=== PATIENT | male | born 1965 | race Asian ===

== ENCOUNTER 2019-01-06 12:39 | Emergency (ER) | payer SELFPAY ==
--- NOTE | 2019-01-06 14:08 | ED ---
Bite Injury/Animal - HPI Summary HPI Summary: Patient is a 53 y/o M presenting to the ED for a chief complaint of animal bite. Patient is present with his . On 01/02/19, patient went to visit his son because the son stated he had a bat in his apartment for several days. The patient and his killed the bat and disposed of the bat in a dumpster. The bat is now . While attempting to kill the bat, the patient was bitten on the fourth finger of the left hand. Patient admits pain in the fourth finger. He denies fever or headache. He denies any aggravating or alleviating factors. Patient denies taking any medications, or any PMHx or PSHx. Allergies noted. Medications reviewed. - History of Current Complaint Chief Complaint: EDAnimalBite Stated Complaint: BAT BITE PER PT Time Seen by Provider: 01/06/19 13:50 Hx Obtained From: Patient Onset of Injury: Happened days ago, Still Present Type of Bite: Wild Animal - Bat Hx of Bite: Provoked by: - Attempt to kill bat Has Animal Been Immunized?: Unknown Severity Initially: Mild Severity Currently: Mild Pain Intensity: 3 Pain Scale Used: 0-10 Numeric Character: Puncture Aggravating Factor(s): Nothing Alleviating Factor(s): Nothing Associated Signs And Symptoms: Negative: Fever Animal Available for Observation: Yes - Allergies/Home Medications Allergies/Adverse Reactions: Allergies Allergy/AdvReac Type Severity Reaction Status Date / Time No Known Allergies Allergy Verified 01/06/19 12:59 PMH/Surg Hx/FS Hx/Imm Hx Previously Healthy: Yes Endocrine/Hematology History: Denies: Hx Diabetes Cardiovascular History: Denies: Hx Hypercholesterolemia, Hx Hypertension Respiratory History: Denies: Hx Asthma Sensory History: Denies: Hx Legally Blind, Hx Deafness Opthamlomology History: Denies: Hx Legally Blind EENT History: Denies: Hx Deafness - Surgical History Surgical History: None Surgery Procedure, Year, and Place: None Infectious Disease History: No Infectious Disease History: Denies: Traveled Outside the [place] in Last 30 Days - Family History Known Family History: Negative: Cardiac Disease - Social History Lives: With Family Alcohol Use: None Hx Substance Use: No Substance Use Type: Reports: None Hx Tobacco Use: No Smoking Status (MU): Never Smoked Tobacco Review of Systems Negative: Fever Positive: Myalgia - Fourth finger of the left hand Positive: Other - Positive bite on the fourth finger of the left hand Negative: Headache All Other Systems Reviewed And Are Negative: Yes Physical Exam - Summary Physical Exam Summary: Constitutional: Well-developed, Well-nourished, Alert. (-) Distressed Skin: Warm, Dry HENT: Normocephalic; Atraumatic Eyes: Conjunctiva normal Neck: Musculoskeletal ROM normal neck. (-) JVD, (-) Stridor, (-) Tracheal deviation Cardio: Rhythm regular, rate normal, Heart sounds normal; Intact distal pulses; Radial pulses are 2+ and symmetric. (-) Murmur Pulmonary/Chest wall: Effort normal. (-) Respiratory distress, (-) Wheezes, (-) Rales Abd: Soft, (-) tenderness, (-) Distension, (-) Guarding, (-) Rebound Musculoskeletal: (-) Edema Lymph: (-) Cervical adenopathy Neuro: Alert, Oriented x3 Psych: Mood and affect Normal Triage Information Reviewed: Yes Vital Signs On Initial Exam: Initial Vitals Temp Pulse Resp BP Pulse Ox 97.8 F 73 18 146/80 98 01/06/19 12:58 01/06/19 12:58 01/06/19 12:58 01/06/19 12:58 01/06/19 12:58 Vital Signs Reviewed: Yes Procedures - Sedation Patient Received Moderate/Deep Sedation with Procedure: No Diagnostics - Vital Signs Vital Signs Temp Pulse Resp BP Pulse Ox 01/06/19 12:58 97.8 F 73 18 146/80 98 - Laboratory Lab Statement: Any lab studies that have been ordered have been reviewed, and results considered in the medical decision making process. Bite Injury Course/Dx - Course Course Of Treatment: Patient is here with potential bat bite that occurred on Saturday in [place]. The Department of Health paperwork was filled out and the nurse talked to the Department of Health. Per them, patient has been telling different stories to them and should not be offered rabies vaccination in [facility]. Patient was encouraged to go to [facility] where they will give him the rabies vaccine - Diagnoses Provider Diagnosis: Bat bite of finger Discharge ED - Sign-Out/Discharge Documenting (check all that apply): Patient Departure - Discharge - Discharge Plan Condition: Stable Disposition: HOME Patient Education Materials: Animal Bite (ED) Referrals: [facility] [Outside] Additional Instructions: Go directly to [facility] to receive your rabies vaccination. PLEASE RETURN TO EMERGENCY DEPARTMENT FOR ANY NEW OR WORSENING SYMPTOMS. Please follow up with your primary care physician. Please make all follow-ups in 1-3 days unless I advise you otherwise. - Billing Disposition and Condition Condition: STABLE Disposition: Home - Attestation Statements Document Initiated by Augustoibe: Yes Documenting Scribe: Isabella Gonzalez Provider For Whom Augustoibbrittany is Documenting (Include Credential): Cipriano Lopez MD Scribe Attestation: Isabella Owens, scribed for Cipriano Lopez MD on 01/06/19 at 2123. Scribe Documentation Reviewed: Yes Provider Attestation: The documentation as recorded by the Isabella keller accurately reflects the service I personally performed and the decisions made by me, Cipriano Lopez MD Status of Scribe Document: Viewed
== END 2019-01-06 15:53 | disposition home or self-care (01) ==
LOC: ED 12:39
DX: S61.255A Open bite of left ring finger without damage to nail, initial encounter (principal); W55.81XA Bitten by other mammals, initial encounter; Y92.039 Unspecified place in apartment as the place of occurrence of the external cause
CPT/HCPCS: 99281

== ENCOUNTER 2019-01-10 07:13 | Emergency (ER) | payer SELFPAY ==
[2019-01-10] MEDS ORDERED: Rabies VIRUS VACCINE (RabAvert)* 2.5 UNITS VIAL IM ONE (07:18)
--- NOTE | 2019-01-10 07:20 | UC ---
UC General HPI - HPI Summary HPI Summary: 53-year-old male comes in with a chief complaint of needing his day 3 rabies vaccine. Patient was bit on the left index finger by a bat on January 02, 2019. He received rig and a 0 of the rabies vaccine on January 07, 2019 and [facility]. He is here today for day 3 of the rabies vaccination. Patient's has no complaint of pain in the left index finger he feels well. - History of Current Complaint Stated Complaint: BAT EXPOSURE Time Seen by Provider: 01/10/19 07:18 - Allergy/Home Medications Allergies/Adverse Reactions: Allergies Allergy/AdvReac Type Severity Reaction Status Date / Time No Known Allergies Allergy Verified 01/10/19 07:22 Home Medications: Home Medications NK [No Home Medications Reported] 01/10/19 [History Confirmed 01/10/19] PMH/Surg Hx/FS Hx/Imm Hx Previously Healthy: Yes - Surgical History Surgical History: None Surgery Procedure, Year, and Place: None - Family History Known Family History: Negative: Cardiac Disease - Social History Alcohol Use: None Substance Use Type: None Smoking Status (MU): Never Smoked Tobacco Review of Systems All Other Systems Reviewed And Are Negative: Yes Constitutional: Positive: Negative Skin: Positive: Other - SEE HPI Eyes: Positive: Negative ENT: Positive: Negative Respiratory: Positive: Negative Cardiovascular: Positive: Negative Gastrointestinal: Positive: Negative Motor: Positive: Negative Neurovascular: Positive: Negative Musculoskeletal: Positive: Negative Neurological: Positive: Negative Psychological: Positive: Negative Is Patient Immunocompromised?: No Physical Exam Triage Information Reviewed: Yes Appearance: Well-Appearing, No Pain Distress, Well-Nourished Vital Signs Reviewed: Yes Eye Exam: Normal Eyes: Positive: Conjunctiva Clear Neck: Positive: Supple Respiratory: Positive: Lungs clear, Normal breath sounds, No respiratory distress Cardiovascular: Positive: RRR Musculoskeletal: Positive: Strength Intact, ROM Intact, Other: - Left index finger has no evidence of the wound this time there is no erythema has full range of motion no drainage. Neurological: Positive: Alert, Muscle Tone Normal Psychological: Positive: Normal Response To Family, Age Appropriate Behavior Skin Exam: Normal Course/Dx - Course Course Of Treatment: Patient received rig and day 0 the rabies vaccine on January 07, 2019. Today is day 3 for the rabies vaccination. Patient received day 3 of the rabies vaccination here in clinic today. Patient's will need to get day 7 rabies vaccine on January 14, 2019 and day 14 on January 21, 2019. The case was discussed with [facility]. - Diagnoses Provider Diagnosis: Bat bite of finger Discharge ED - Sign-Out/Discharge Documenting (check all that apply): Patient Departure All imaging exams completed and their final reports reviewed: No Studies - Discharge Plan Condition: Stable Disposition: HOME Patient Education Materials: Rabies Vaccine (ED) Referrals: [facility] [Outside] [facility] [Outside] Additional Instructions: FOLLOW UP WITH THE [facility], . You received rig and day 0 of the rabies vaccine on January 07, 2019. Today is day 3 for the rabies vaccination. You will need to get day 7 rabies vaccine on January 14, 2019 and day 14 on January 21, 2019. The case was discussed with [facility]. YOU WERE GIVEN THE DAY 3 RABIES VACCINE TODAY. YOU NEED TO CONTINUE THE SERIES - Billing Disposition and Condition Condition: STABLE Disposition: Home
== END 2019-01-10 08:35 | disposition home or self-care (01) ==
LOC: UCEAST 07:13
DX: S61.251A Open bite of left index finger without damage to nail, initial encounter (principal); W55.81XA Bitten by other mammals, initial encounter; Y92.9 Unspecified place or not applicable
CPT/HCPCS: 90471; 90675; 99211; G0463

== ENCOUNTER 2019-01-14 07:17 | Emergency (ER) | payer SELFPAY ==
[2019-01-14 07:36] VITALS: BP 140/74
[2019-01-14] MEDS ORDERED: Rabies VIRUS VACCINE (RabAvert)* 2.5 UNITS VIAL IM ONE (07:40)
--- NOTE | 2019-01-14 08:25 | UC ---
General HPI - HPI Summary HPI Summary: PATIENT REPORTS HISTORY OF BAT BITE TO HIS LEFT 4TH FINGER ON 01/02/19. HAD RIG AND INITIAL RABIES VACCINE IN [facility]. WAS SEEN HERE 01/10/19 FOR HIS SECOND RABIES VACCINATION AND IS HERE TODAY FOR THE THIRD. HE HAS TOLERATED THE VACCINES WELL WITH NO ADVERSE REACTIONS. - History of Current Complaint Chief Complaint: UCGeneralIllness Stated Complaint: POST EXPOSURE RABBIES Time Seen by Provider: 01/14/19 07:33 Hx Obtained From: Patient Current Severity: None Pain Intensity: 0 - Allergy/Home Medications Allergies/Adverse Reactions: Allergies Allergy/AdvReac Type Severity Reaction Status Date / Time No Known Allergies Allergy Verified 01/10/19 07:22 PMH/Surg Hx/FS Hx/Imm Hx Previously Healthy: Yes - Surgical History Surgical History: None Surgery Procedure, Year, and Place: None - Family History Known Family History: Negative: Cardiac Disease - Social History Alcohol Use: None Substance Use Type: None Smoking Status (MU): Never Smoked Tobacco Review of Systems All Other Systems Reviewed And Are Negative: Yes Constitutional: Positive: Negative Skin: Positive: Negative Respiratory: Positive: Negative Cardiovascular: Positive: Negative Gastrointestinal: Positive: Negative Physical Exam Triage Information Reviewed: Yes Appearance: Well-Appearing, No Pain Distress, Well-Nourished Vital Signs: Initial Vital Signs Temp 98.0 F 01/14/19 07:32 Pulse 79 01/14/19 07:32 Resp 18 01/14/19 07:32 BP 140/74 01/14/19 07:32 Pulse Ox 98 01/14/19 07:32 Vital Signs Reviewed: Yes Eyes: Positive: Conjunctiva Clear ENT: Positive: Hearing grossly normal Neck: Positive: Supple Respiratory: Positive: No respiratory distress, No accessory muscle use Cardiovascular: Positive: Pulses Normal Abdomen Description: Positive: Soft Musculoskeletal: Positive: No Edema Neurological: Positive: Alert Psychological: Positive: Age Appropriate Behavior Skin: Negative: Rashes Course/Dx - Course Course Of Treatment: THIRD RABIES VACCINATION ADMINISTERED TODAY BY RN. PATIENT ADVISED TO HAVE HIS FOURTH AND FINAL RABIES VACCINE IN 1 WEEK ON 01/21/19. - Diagnoses Provider Diagnosis: Need for rabies vaccination Discharge ED - Sign-Out/Discharge Documenting (check all that apply): Patient Departure All imaging exams completed and their final reports reviewed: No Studies - Discharge Plan Condition: Stable Disposition: HOME Patient Education Materials: Rabies Vaccine (ED) Referrals: [facility] [Outside] - If Needed Additional Instructions: YOU RECEIVED YOUR THIRD RABIES VACCINATION TODAY. YOU WILL NEED YOUR FOURTH AND FINAL VACCINE IN 1 WEEK ON 01/21/2019. CALL THE NUMBER BELOW FOR ASSISTANCE IN ESTABLISHING WITH A PCP An additional resource available to assist in finding the appropriate physician for your health care needs is the [facility] (Daksha Lynch). You may contact them by calling [phone]. - Billing Disposition and Condition Condition: STABLE Disposition: Home
== END 2019-01-14 08:27 | disposition home or self-care (01) ==
LOC: UCEAST 07:17
DX: Z23 Encounter for immunization (principal); Z20.3 Contact with and (suspected) exposure to rabies
CPT/HCPCS: 90471; 90675; 99211; G0463

== ENCOUNTER 2019-01-21 07:11 | Emergency (ER) | payer SELFPAY ==
--- NOTE | 2019-01-21 07:17 | UC ---
General HPI - HPI Summary HPI Summary: Pt presents to for rabies vaccination #4 in series. Pt reports was bitten pn her left thumb on 01/02/19 by a bat. Pt denies and concerns or reactions from previous vaccination. Pt did receive RIG post exposure. Pt's medications as entered in the EMR by line crew supervisor reviewed. - History of Current Complaint Stated Complaint: POST EXPOSURE RABIES Hx Obtained From: Patient, Medical Records - Allergy/Home Medications Allergies/Adverse Reactions: Allergies Allergy/AdvReac Type Severity Reaction Status Date / Time No Known Allergies Allergy Verified 01/21/19 07:22 PMH/Surg Hx/FS Hx/Imm Hx Previously Healthy: Yes - Surgical History Surgical History: None Surgery Procedure, Year, and Place: None - Family History Known Family History: Positive: Non-Contributory Negative: Cardiac Disease - Social History Lives: With Family Alcohol Use: None Substance Use Type: None Smoking Status (MU): Never Smoked Tobacco Review of Systems All Other Systems Reviewed And Are Negative: Yes Skin: Positive: Negative Is Patient Immunocompromised?: No Physical Exam - Summary Physical Exam Summary: Vital Signs Reviewed: Yes A+Ox3, no distress Eyes: Conjunctiva Clear ENT: Hearing grossly normal neck: supple Respiratory: Positive: No respiratory distress, No accessory muscle use Cardiovascular: skin color reflect adequate perfusion Musculoskeletal Exam: KLEIN x 4 without difficulty Neurological: Positive: Alert, ambulatory without difficulty Psychological: Positive: Normal Response To examiner Skin: Positive: no rash, no ecchymosis c/d/i at site of bite wound Triage Information Reviewed: Yes Course/Dx - Course Course Of Treatment: pt here for #4 rabies vaccine s/p bat exposure 01/02/19 no reactions to previous vaccinations VSS non concerning exam Will give 4th vaccination - post-exposure BP slightly elevated - recommend f/u with pcp - Diagnoses Provider Diagnosis: Rabies, need for prophylactic vaccination against Discharge ED - Sign-Out/Discharge Documenting (check all that apply): Patient Departure All imaging exams completed and their final reports reviewed: No Studies - Discharge Plan Condition: Stable Disposition: HOME Patient Education Materials: Rabies Vaccine (ED) Referrals: No Primary Care Phys,[facility]OPCP [Primary Care Provider] - [facility] [Outside] Additional Instructions: You may have some discomfort related to the vaccination. This is normal. Okay to alternate ibuprofen (Advil, Motrin) and Tylenol (acetaminophen) every 3 hours for pain. Take with food. Do NOT take for more than 4-5 days. If you develop any concerning symptoms related to your vaccine is recommended to contact your doctor or go to the emergency department for evaluation - Billing Disposition and Condition Condition: STABLE Disposition: Home
[2019-01-21 07:22] VITALS: BP 141/89
[2019-01-21] MEDS ORDERED: Rabies VIRUS VACCINE (RabAvert)* 2.5 UNITS VIAL IM ONE (07:35)
== END 2019-01-21 07:55 | disposition home or self-care (01) ==
LOC: UCEAST 07:11
DX: Z23 Encounter for immunization (principal); S61.052D Open bite of left thumb without damage to nail, subsequent encounter; W55.81XD Bitten by other mammals, subsequent encounter
CPT/HCPCS: 90471; 90675; 99211; G0463